=== PATIENT | male | born 1955 | race Caucasian/White ===

== ENCOUNTER 2023-04-02 07:41 | Day surgery (SDC) | payer MEDICARE, OTHER, SELFPAY ==
[2023-03-29 13:48] VITALS: BMI 30.3
[2023-04-02 08:03] VITALS: BMI 29.9
[2023-04-02 08:23] VITALS: BP 129/82; PULSE 73; RESP 16; TEMP 35.9; O2SAT 99
[2023-04-02] MEDS: Lactated Ringers 1,000 ML 100 ML IVCONT (08:39)
--- NOTE | 2023-04-02 08:42 | HO.ANESPROP2 ---
HPI - Anesthesia Eval Consult details Narrative: 67 yo M presenting for colonoscopy [facility] Past Medical History Medical History Ventricular ectopy Sleep apnea GERD (gastroesophageal reflux disease) Elevated cholesterol HTN (hypertension) Surgical History Surgical History Hx of hand surgery H/O colonoscopy History of Problems with Anesthesia: No Social History Social History Patient Tobacco Use Status: Never used Tobacco Use of substances other than those prescribed or required for medical reasons: No Are you DNR?: No Advance Directives: No Advance Directives Information Provided: No Meds Allergies Allergy/AdvReac Type Severity Reaction Status Date / Time lisinopril Allergy Unknown Unknown Verified 03/29/23 13:47 Active Medications: Current Medications Lactated Ringer's (Lr) 1,000 mls @ 100 mls/hr IVCONT .Q10H [facility] Last Admin: 04/02/23 08:39 Dose: 100 mls/hr Lactated Ringer's (Lr) 1,000 mls @ 100 mls/hr IVCONT .Q10H [facility] Home Medications Medication Instructions Recorded Confirmed Last Taken Type aspirin 81 mg tablet,delayed 81 mg PO DAILY 03/29/23 03/29/23 Unknown History release cholecalciferol (vitamin D3) 50 50 mcg PO DAILY 03/29/23 03/29/23 Unknown History mcg (2,000 unit) capsule (Vitamin D3) diltiazem HCl 180 mg 180 mg PO DAILY 03/29/23 04/02/23 04/02/23 06:10 History tablet,extended release 24 hr fexofenadine 180 mg tablet 180 mg PO DAILY 03/29/23 03/29/23 Unknown History multivitamin 1 tab PO DAILY 03/29/23 03/29/23 Unknown History omeprazole 40 mg capsule,delayed 40 mg PO DAILY 03/29/23 03/29/23 Unknown History release pravastatin 20 mg tablet 20 mg PO BEDTIME 03/29/23 03/29/23 Unknown History Exam Exam Date and Time: April 02, [id number] Height,Weight and Vital Signs: Height 5 ft 6 in Weight 84.085 kg Last Vital Signs Temp 96.7 F L 04/02/23 08:23 Pulse 73 04/02/23 08:23 Resp 16 04/02/23 08:23 BP 129/82 04/02/23 08:23 Pulse Ox 99 04/02/23 08:23 O2 Del Method Room Air 04/02/23 08:23 Airway Mallampati Class: I TM Dist: >3cm Neck ROM: Full Loose/Missing/Broken Teeth: Yes (multiple missing teeth) Heart: S1S2 Lungs: CTAB Assessment and Plan Assessment Anesthesia Assessment: Anesthesia Plan Discussed and Chart Reviewed Final Anesthetic Review History of Problems with Anesthesia: No NPO: Yes ASA Class: II Final Preanesthetic Review: No Changes in Pt Med Stat, Meds/Allgs Chart Reviewed, Consent Obtained/Reviewed and Anes Risks/Benef Reviewed Patient Risk: Low Procedure Risk: Low Anesthetic Plan Anesthetic Plan: MAC: and Agree w/ Assess. and Plan Disposition: Standard PACU
--- NOTE | 2023-04-02 09:06 | P.HPSUR_ITS ---
Pre-Procedural Eval Section A Date of Service: 04/02/23 Section B Chief Complaint: Encounter for screening for malignant neoplasm of Details of Present Illness: see H+P no changes Relevant Family History (Specify if Yes): No Relevant Social History: None Present Medications: see Short Stay Collaborative assessment Medical History: No relevant PMH Allergies: Allergies Allergy/AdvReac Type Severity Reaction Status Date / Time lisinopril Allergy Unknown Unknown Verified 03/29/23 13:47 Review of Systems Sugical H&P ROS: Negative: Constitution, Cardiovascular, Respiratory, Neurological, Psychiatric, Hem-Onc, Allergic/Immunologic, Gastrointestinal, Genitourinary, Musculoskeletal, Integumentary, Endocrine and Eyes/Ears/Nose/Throat Exam Surgical H&P Exam: Normal: HEENT, Normal: Heart, Normal: Lungs, Normal: E xtremities, Normal: Abdomen, Normal: Skin and Normal: Neurological Plan Diagnosis/Plan: Unchanged I have reviewed the history and physical and performed a pertinent physical examination on my patient. No changes have occurred unless specified. Time Spent With Patient Time: Total time managing care of this patient today ____ minutes.
[2023-04-02 09:49] VITALS: BP 112/60; PULSE 61; RESP 13; TEMP 36.2; O2SAT 96
[2023-04-02 10:04] VITALS: BP 131/77; PULSE 69; RESP 13; TEMP 36.2; O2SAT 96
--- NOTE | 2023-04-02 11:27 | OP_ITS ---
DATE OF SERVICE: 04/02/2023 SURGEON: Neptali Birch MD INDICATIONS: Colon cancer screening. PREOPERATIVE DIAGNOSIS: POSTOPERATIVE DIAGNOSIS: PROCEDURE PERFORMED: Colonoscopy to the cecum. ESTIMATED BLOOD LOSS: COMPLICATIONS: ANESTHESIA: Monitored anesthesia care. ASSISTANTS: SPECIMENS: DESCRIPTION OF PROCEDURE: A history and physical was performed. The risks and benefits of the procedure were explained to the patient. Informed consent was obtained. The patient was placed in the left lateral decubitus position. A digital rectal exam was performed and was found to be normal. The Olympus pediatric video colonoscope was introduced into the rectum and advanced to the cecum. The cecum was identified by transillumination, palpation, and identification of ileocecal valve. Examination was performed. The scope was removed. He tolerated the procedure well and was returned to the recovery area in stable condition. FINDINGS: The terminal ileum was not examined. The visualized colonic mucosa was normal. The quality of the prep was good. No polyps were identified. Retroflexed examination was normal. IMPRESSION: Normal colonoscopy. RECOMMENDATION: 1. Follow up as needed. 2. Repeat colonoscopy is recommended in 10 years for average risk individuals. MD NANCY Ariza/GRISELL / [id number]
== END 2023-04-02 10:19 | disposition home or self-care (01) ==
PROVIDERS: Visit Provider Internal Medicine Gastroenterology
PROC: 0DJD8ZZ Inspection of Lower Intestinal Tract, Via Natural or Artificial Opening Endoscopic (ICD-10-PCS; CPT 45378; principal; 2023-04-02 09:20)
DX: Z12.11 Encounter for screening for malignant neoplasm of colon (principal); I10 Essential (primary) hypertension; E78.5 Hyperlipidemia, unspecified; K21.9 Gastro-esophageal reflux disease without esophagitis; G47.33 Obstructive sleep apnea (adult) (pediatric); Z99.89 Dependence on other enabling machines and devices; Z79.02 Long term (current) use of antithrombotics/antiplatelets; Z79.82 Long term (current) use of aspirin; Z79.899 Other long term (current) drug therapy
CPT/HCPCS: G0121; J2704